=== PATIENT | male | born 1990 | race Caucasian/White ===

== ENCOUNTER → 2019-11-04 07:54 | Outpatient (BNVA) | payer OTHER, SELFPAY | PROVIDERS: Family Provider Nurse Practitioner; PCP Nurse Practitioner; Visit Provider Nurse Practitioner | DX: F41.1 Generalized anxiety disorder (principal); F33.1 Major depressive disorder, recurrent, moderate; F60.3 Borderline personality disorder | CPT/HCPCS: 99214 ==

== ENCOUNTER → 2019-11-23 12:12 | Outpatient (BNVA) | payer OTHER, SELFPAY | PROVIDERS: Family Provider Nurse Practitioner; PCP Nurse Practitioner; Visit Provider Nurse Practitioner | DX: Z00.00 Encounter for general adult medical examination without abnormal findings (principal); F41.1 Generalized anxiety disorder; Z79.899 Other long term (current) drug therapy; J06.9 Acute upper respiratory infection, unspecified | CPT/HCPCS: 80053; 80061; 84443; 85025 ==

== ENCOUNTER → 2020-02-03 07:32 | Outpatient (BNVA) | payer OTHER, SELFPAY | PROVIDERS: Family Provider Nurse Practitioner; PCP Nurse Practitioner; Visit Provider Nurse Practitioner | DX: F33.1 Major depressive disorder, recurrent, moderate (principal); F60.3 Borderline personality disorder; F41.1 Generalized anxiety disorder | CPT/HCPCS: 99213 ==

== ENCOUNTER → 2020-04-21 12:41 | Outpatient (BNVA) | payer OTHER, SELFPAY | PROVIDERS: Family Provider Nurse Practitioner; PCP Nurse Practitioner; Visit Provider Nurse Practitioner | DX: M10.9 Gout, unspecified (principal) | CPT/HCPCS: 84550 ==

== ENCOUNTER → 2020-05-17 15:49 | Outpatient (BNVA) | payer OTHER, SELFPAY | PROVIDERS: Family Provider Nurse Practitioner; PCP Nurse Practitioner; Visit Provider Nurse Practitioner Family | DX: R05 Cough (principal); Z20.818 Contact with and (suspected) exposure to other bacterial communicable diseases | CPT/HCPCS: 87635 ==

== ENCOUNTER → 2020-05-19 09:10 | Outpatient (BNVA) | payer OTHER, SELFPAY | PROVIDERS: Family Provider Nurse Practitioner; PCP Nurse Practitioner; Visit Provider Nurse Practitioner | DX: F60.3 Borderline personality disorder (principal); F33.1 Major depressive disorder, recurrent, moderate; F41.1 Generalized anxiety disorder; F43.12 Post-traumatic stress disorder, chronic | CPT/HCPCS: 99214 ==

== ENCOUNTER 2020-05-19 16:31 | Emergency (ER) | payer OTHER, SELFPAY ==
[2020-05-19 18:12] VITALS: BP 112/78; PULSE 113; RESP 14; TEMP 39.5; O2SAT 97; BMI 30.9
--- NOTE | 2020-05-19 18:27 | ED_ITS ---
HPI - Fever General: Chief Complaint: Fever Stated Complaint: covid symptoms Time Seen by Provider: 05/19/20 18:06 Source: patient Mode of arrival: ambulatory Limitations: no limitations History of Present Illness: HPI Narrative: 30-year-old male patient comes in today with fever, cough, emesis since Friday. Patient reports his spouse was positive for COVID since last week. Patient comes in today for recurrent episodes of emesis and not feeling better yet. Patient appears mildly unwell. Patient appears in no pain. Associated symptoms: Reports vomiting Review of Systems General: Reports: 10 or more systems reviewed and unremarkable except in HPI and below Const: Reports: fever(s) Resp: Reports: non-productive cough GI: Reports: vomiting PFSH ED PFSH: Medical History (Updated 05/19/20 @ 21:16 by JEN Lawton) Anxiety Borderline personality disorder Depression Generalized anxiety disorder Major depressive disorder, recurrent, moderate Family History Mother Cancer Mother Diabetes Sister Diabetes Grandmother Diabetes Grandfather Hypertension Social History Smoking and tobacco status: never smoked Alcohol intake: never History of recent travel: No Physical Exam Const: COMMON NORMALS: no acute distress and patient oriented x3 GENERAL APPEARANCE: cooperative HENMT: COMMON NORMALS: normocephalic, TM's normal bilaterally and Normal e xternal nose present HEAD & SCALP: normal to inspection and normocephalic NOSE: Normal external nose present TYMPANIC MEMBRANE: TM's normal bilaterally MOUTH: Normal oral and palatal mucosa present THROAT: posterior oropharynx normal Eye: GENERAL EYE: appearance normal, both eyes and all related structures Neck/C-Spine: COMMON NORMALS: full ROM Lymph: LYMPHATIC: no lymphadenopathy noted Chest: COMMONS NORMALS: normal inspection of the chest Resp: COMMON NORMALS: normal respiratory effort EFFORT & INSPECTION: Yes able to speak in complete sentences Cardio: COMMON NORMALS: regular rate and regular rhythm RATE: regular rate RHYTHM: regular rhythm GI: COMMON NORMALS: non-tender : COMMON NORMALS: Yes no CVA tenderness BLADDER/KIDNEY EXAM: Yes no CVA tenderness Back/Pelvis: COMMON NORMALS: no CVA tenderness and thoracic and lumbar spine normal to inspection Extremity: COMMON NORMALS: normal to inspection Neuro: COMMON NORMALS: patient oriented x3 and moves all extremities Psych: COMMON NORMALS: mental status grossly normal and cooperative Skin: COMMON NORMALS: no rashes or lesions noted GENERAL SKIN EXAM: no rashes or lesions noted Course Vital Signs: Vital signs: Vital Signs Temperature 100.6 F H 05/19/20 20:47 Pulse Rate 113 H 05/19/20 18:12 Respiratory Rate 14 05/19/20 18:12 Blood Pressure 121/68 05/19/20 20:47 Pulse Oximetry 97 05/19/20 20:47 MDM - Fever MDM Narrative: Medical decision making narrative: Medical decision statement. Patient comes in today with a fever and cough for 5 days. Patient comes in due to poor oral intake and vomiting due to persistent cough. Patient appears mildly unwell. Skin is warm and dry. Vital signs note a elevated pulse in the 110s, elevated temperature of 101, but otherwise normal vital signs. Pulse oxygen is 97-99%. Differential diagnosis includes COVID-19, pneumonia, upper respiratory infection, lower respiratory infection. Laboratory values were significant for some mild dehydration with a BUN of 21 and a creatinine of 1.6. Chest x-ray noted a small patchy infiltrate in the left lower lung. COVID antigen test was positive. Spouse is also positive for COVID and had been ill about 3 to 4 days prior to patient started having illness. Patient was given 2 L of IV fluids to correct mild dehydration. Patient was given 8 mg of dexamethasone due to pneumonia. Patient will be continued on albuterol inhaler to help with cough, wheezing and pneumonia. Reviewed exam with patient with recommendations for further treatment and follow-up. Patient reported understanding and agreed with plan. Lab Data: Labs: Lab Results 05/19/20 05/19/20 05/19/20 Range/Units 19:50 19:50 19:50 WBC 5.3 (4.0-10.0) 10^3/ uL RBC 6.12 H (4.1-5.3) 10^6/u L Hgb 14.1 (11.7-16.6) g/dL Hct 45.1 (42.0-52.0) % MCV 73.7 L (80-94) fL MCH 23.0 L (28.0-34.0) pg MCHC 31.3 (30.0-36.0) g/dL RDW 14.0 (12.1-15.1) % Plt Count 173 (130-400) 10^3/c mm MPV 11.5 H (7.4-10.4) fL Neut % (Auto) 82.0 % Lymph % (Auto) 11.4 % [place] % (Auto) 6.2 % Eos % (Auto) 0.0 % Baso % (Auto) 0.2 % Neut # (Auto) 4.38 (1.8-7.7) 10^3/u L Lymph # (Auto) 0.6 L (0.8-4.8) 10^3/u L [place] # (Auto) 0.3 (0.2-0.9) 10^3/u L Eos # (Auto) 0.0 (0.0-0.8) 10^3/u L Baso # (Auto) 0.0 (0.0-0.1) 10^3/u L Nucleated RBC % (a uto) 0 % Nucleated RBCs # 0.0 /100WBC Sodium 136 (136-145) mmol/L Potassium 4.3 (3.5-5.1) mmol/L Chloride 99 (98-107) mmol/L Carbon Dioxide 21 L (22-29) mmol/L Anion Gap 20.3 H (5-19) BUN 14 (6-20) mg/dL Creatinine 1.6 H (0.7-1.2) mg/dL GFR Calculation 51.7 L (90-130) mL/min Glucose 85 (65-115) mg/dL Calculated Osmolal ity 277 L (285-295) mOsm/k g Lactic Acid 0.9 (0.5-2.2) mmol/L Calcium 9.0 (8.5-10.5) mg/dL Total Bilirubin 0.5 (0.15-1.2) mg/dL AST 34 (0-40) U/L ALT 31 (0-41) U/L Alkaline Phosphata se 81 (40-130) IU/L Total Protein 8.5 (6.6-8.7) g/dL Albumin 4.7 (3.5-5.2) g/dL Globulin 3.8 (1.3-4.6) g/dL SARS-CoV-2 Ag (Rap id) (Negative) Group A Strep Rapi d (Negative) 05/19/20 05/19/20 Range/Units 19:50 19:50 WBC (4.0-10.0) 10^3/ uL RBC (4.1-5.3) 10^6/u L Hgb (11.7-16.6) g/dL Hct (42.0-52.0) % MCV (80-94) fL MCH (28.0-34.0) pg MCHC (30.0-36.0) g/dL RDW (12.1-15.1) % Plt Count (130-400) 10^3/c mm MPV (7.4-10.4) fL Neut % (Auto) % Lymph % (Auto) % [place] % (Auto) % Eos % (Auto) % Baso % (Auto) % Neut # (Auto) (1.8-7.7) 10^3/u L Lymph # (Auto) (0.8-4.8) 10^3/u L [place] # (Auto) (0.2-0.9) 10^3/u L Eos # (Auto) (0.0-0.8) 10^3/u L Baso # (Auto) (0.0-0.1) 10^3/u L Nucleated RBC % (a uto) % Nucleated RBCs # /100WBC Sodium (136-145) mmol/L Potassium (3.5-5.1) mmol/L Chloride (98-107) mmol/L Carbon Dioxide (22-29) mmol/L Anion Gap (5-19) BUN (6-20) mg/dL Creatinine (0.7-1.2) mg/dL GFR Calculation (90-130) mL/min Glucose (65-115) mg/dL Calculated Osmolal ity (285-295) mOsm/k g Lactic Acid (0.5-2.2) mmol/L Calcium (8.5-10.5) mg/dL Total Bilirubin (0.15-1.2) mg/dL AST (0-40) U/L ALT (0-41) U/L Alkaline Phosphata se (40-130) IU/L Total Protein (6.6-8.7) g/dL Albumin (3.5-5.2) g/dL Globulin (1.3-4.6) g/dL SARS-CoV-2 Ag (Rap id) Positive H (Negative) Group A Strep Rapi d Negative (Negative) Discharge Plan Discharge Patient Disposition: Home Clinical Impression: COVID-19 virus infection Community acquired pneumonia Qualifiers: Laterality: left Lung location: lower lobe of lung Qualified Code(s): J18.9 - Pneumonia, unspecified organism Condition: Stable Prescriptions: New albuterol sulfate 90 mcg/actuation HFA aerosol inhaler 2 inh INHALATION Q4H PRN (Reason: shortness of breath or wheezing, cough) Qty: 8.5 RF: 0 No Action indomethacin 50 mg capsule 50 mg PO TID Qty: 21 RF: 1 meclizine 12.5 mg tablet 12.5 mg PO DAILY PRNRF: 0 bupropion HCl [Wellbutrin XL] 300 mg tablet extended release 24 hr 300 mg PO QAM Qty: 30 RF: 2 mirtazapine [Remeron] 15 mg tablet 15 mg PO .HS Qty: 30 RF: 1 bupropion HCl [Wellbutrin XL] 150 mg tablet extended release 24 hr 150 mg PO QAM Qty: 30 RF: 2 Referrals: Martha Bearden FNP [Primary Care Provider] - Discharge Diet: Usual diet Discharge Activity: Increase activity as tolerated Patient Instructions: Viral Pneumonia (ED) Activity Restrictions/Additional Instructions: Healthy diet and exercise. Use inhaler as needed for wheezing or cough. Drink plenty of fluids. CDC recommends at least 10 days quarantine or until fever has been gone for 24 hours. Follow-up with primary care for further treatment or concerns. Return to the emergency department for worsening symptoms?including increased shortness of breath, or chest pain. Coding Level of Care Code ED Gunner'S Mate M for Delvisg Fwd Exam Comprehensive
--- NOTE | 2020-05-19 18:27 | XRR_ITS ---
PROCEDURE INFORMATION: Exam: XR Chest, 1 View Exam date and time: 05/19/2020 7:42 PM Age: 30 years old Clinical indication: Cough and shortness of breath; Patient HX: Fever cough SOB; Additional info: Fever, cough TECHNIQUE: Imaging protocol: XR of the chest Views: 1 view. COMPARISON: No relevant prior studies available. FINDINGS: There is some infiltrate in the left lung base. The right lung is clear. There is no pleural effusion or pneumothorax. The heart size is normal. XR/XR chest 1V portable [id number] IMPRESSION: Infiltrate within the left lung base.
[2020-05-19 20:04] LABS: Basophils % 0.2 %; Hematocrit 45.1 % (42.0-52.0); Hemoglobin 14.1 g/dL (11.7-16.6); Lymphocytes # 0.6 10^3/uL (0.8-4.8); Lymphocytes % 11.4 %; Mean Corpuscular HGB Conc 31.3 g/dL (30.0-36.0); Mean Corpuscular Volume 73.7 fL (80-94); Mean Platelet Volume 11.5 fL (7.4-10.4); Monocytes # 0.3 10^3/uL (0.2-0.9); Monocytes % 6.2 %; Neutrophils # 4.38 10^3/uL (1.8-7.7); Nucleated Red Blood Cells % 0 %; Platelet Count 173 10^3/cmm (130-400); Red Blood Count 6.12 10^6/uL (4.1-5.3); White Blood Count 5.3 10^3/uL (4.0-10.0)
[2020-05-19 20:27] LABS: Alanine Aminotransferase 31 U/L (0-41); Albumin Level 4.7 g/dL (3.5-5.2); Alkaline Phosphatase 81 IU/L (40-130); Anion Gap 20.3 (5-19); Aspartate Amino Transferase 34 U/L (0-40); Blood Urea Nitrogen 14 mg/dL (6-20); Carbon Dioxide 21 mmol/L (22-29); Chloride 99 mmol/L (98-107); Globulin 3.8 g/dL (1.3-4.6); Glomerular Filtration Rate 51.7 mL/min (90-130); Glucose 85 mg/dL (65-115); Osmolality Calculated 277 mOsm/kg (285-295); Potassium 4.3 mmol/L (3.5-5.1); Sodium 136 mmol/L (136-145); Total Bilirubin 0.5 mg/dL (0.15-1.2); Total Protein 8.5 g/dL (6.6-8.7)
[2020-05-19 20:28] LABS: Lactic Sepsis W/Reflex 0.9 mmol/L (0.5-2.2)
[2020-05-19] MEDS: sodium chloride 0.9% 1,000 ML 999 ML IV (20:30)
[2020-05-19 20:44] LABS: SARS Covid-2 Antigen Positive (Negative)
[2020-05-19 20:47] VITALS: BP 121/68; TEMP 38.1; O2SAT 97
[2020-05-19 21:15] LABS: Rapid Strep A Test Negative (Negative)
[2020-05-19] MEDS: lactated ringers 1,000 ML 999 ML IV (22:00)
[2020-05-19] MEDS: dexamethasone 4 mg/mL INJ 8 MG IVP (22:01)
[2020-05-19] MEDS: acetaminophen 500 mg Tablet 1000 MG PO (22:01)
--- NOTE | 2020-05-19 22:10 | PC.RESP ---
TAYA De Dios has given 2 puffs of albuterol with a spacer.
[2020-05-19 23:19] VITALS: BP 121/70; PULSE 108; RESP 16; TEMP 37.9; O2SAT 95
== END 2020-05-19 23:26 | disposition home or self-care (01) ==
PROVIDERS: Emergency Provider Nurse Practitioner Family; Family Provider Nurse Practitioner; PCP Nurse Practitioner
DX: U07.1 COVID-19 (principal); J12.89 Other viral pneumonia
CPT/HCPCS: 12345; 71045; 80053; 83605; 85025; 87081; 87426; 87880; 96365; 96375; 99283; 99284; J1100; J3535; J7030

== ENCOUNTER 2021-03-14 14:08 | Emergency (ER) | payer OTHER, SELFPAY ==
[2021-03-14 14:16] VITALS: BP 130/92; PULSE 102; RESP 18; TEMP 37.2; O2SAT 96; BMI 33.0
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
[2021-03-14 14:54] LABS: Add Urine Microscopic? NO; Charge for UA Resulting for Rev
[2021-03-14 14:56] VITALS: BP 130/76; PULSE 90; RESP 16; O2SAT 96
[2021-03-14 14:56] LABS: Basophils % 0.3 %; Eosinophils % 0.1 %; Hematocrit 45.5 % (42.0-52.0); Hemoglobin 14.6 g/dL (11.7-16.6); Lymphocytes # 1.4 10^3/uL (0.8-4.8); Lymphocytes % 13.7 %; Mean Corpuscular HGB Conc 32.1 g/dL (30.0-36.0); Mean Corpuscular Hemoglobin 25.3 pg (28.0-34.0); Mean Platelet Volume 11.6 fL (7.4-10.4); Monocytes # 0.4 10^3/uL (0.2-0.9); Monocytes % 3.5 %; Neutrophils # 8.65 10^3/uL (1.8-7.7); Neutrophils % 82.1 %; Nucleated Red Blood Cells % 0 %; Platelet Count 294 10^3/cmm (130-400); Red Blood Count 5.76 10^6/uL (4.1-5.3); Red Cell Distribution Width 13.4 % (12.1-15.1); White Blood Count 10.5 10^3/uL (4.0-10.0)
--- NOTE | 2021-03-14 15:01 | PC.PHAR ---
pt states he takes care of his own medications-pt states he hasnt taken his wellbutrin xl 300mg or 150mg indomethacin 50mg (last filled 07/31/20)or remeron 15mg since aug 2020-ext med history shows those medications last filled on 05/19/2020 90d/s -pt states he had a proair inhaler for covid but states its gone
[2021-03-14 15:04] LABS: Bilirubin Urine Neg (Negative); Blood Urine Neg (Negative); Glucose Urine UA Norm (Normal); Ketones Urine Negative (Negative); Leukocyte Esterase Urine Negative (Negative); Nitrate Urine Negative (Negative); Protein Urine Neg (Negative); Specific Gravity, Urine 1.005 (1.005-1.030); Urine Appearance Clear (CLEAR); Urine Color Yellow (Yellow); Urobilinogen Urine Norm (Negative); pH Urine 7 (5-7)
[2021-03-14 15:08] LABS: Amphetamines Screen Urine Negative (Negative); Barbiturates Screen Urine Negative (Negative); Benzodiazepines Screen Urine Negative (Negative); Cocaine Screen Urine Negative (Negative); Opiate Screen Urine Negative (Negative); PCP Screen Urine Negative (Negative); THC Screen Urine Negative (Negative)
[2021-03-14 15:36] LABS: Alanine Aminotransferase 45 U/L (0-41); Albumin Level 4.5 g/dL (3.5-5.2); Alkaline Phosphatase 103 IU/L (40-130); Aspartate Amino Transferase 24 U/L (0-40); Blood Urea Nitrogen 11 mg/dL (6-20); Calcium 9.6 mg/dL (8.5-10.5); Carbon Dioxide 23 mmol/L (22-29); Chloride 105 mmol/L (98-107); Globulin 3.1 g/dL (1.3-4.6); Glomerular Filtration Rate 72.1 mL/min (90-130); Glucose 115 mg/dL (65-115); Osmolality Calculated 292 mOsm/kg (285-295); Sodium 141 mmol/L (136-145); Total Bilirubin 0.6 mg/dL (0.15-1.2); Total Protein 7.6 g/dL (6.6-8.7)
[2021-03-14 15:49] LABS: Acetaminophen < 5.0 ug/mL (10-30); Alcohol Level < 10 mg/dL (0-10); Salicylate < 0.3 mg/dL (3-10)
[2021-03-14 16:40] VITALS: BP 123/76; PULSE 90; RESP 90; TEMP 37.3; O2SAT 96
== END 2021-03-14 16:43 | disposition home or self-care (01) ==
PROVIDERS: Emergency Provider Emergency Medicine
DX: F41.8 Other specified anxiety disorders (principal)
CPT/HCPCS: 80053; 80306; 80307; 81003; 85025; 99283